=== PATIENT | male | born 1970 ===

== ENCOUNTER 2023-11-04 10:26 | Emergency (ER) | payer BC | END 2023-11-04 12:52 | disposition home or self-care (01) | LOC: MW.ED 10:26 | DX: S49.91XA Unspecified injury of right shoulder and upper arm, initial encounter (principal); I10 Essential (primary) hypertension; E11.9 Type 2 diabetes mellitus without complications; E03.9 Hypothyroidism, unspecified; Z79.84 Long term (current) use of oral hypoglycemic drugs; Z79.4 Long term (current) use of insulin; Z79.899 Other long term (current) drug therapy; Z88.0 Allergy status to penicillin; W00.0XXA Fall on same level due to ice and snow, initial encounter | CPT/HCPCS: 71101-26-RT; 71101-RT; 73030-26-RT; 73030-RT; 73110-26-RT; 73110-RT; 73130-26-RT; 73130-RT; 99283 ==